=== PATIENT | male | born 1965 | race Hispanic/Latino ===

== ENCOUNTER 2016-10-09 19:26 | Emergency (ER) | payer MEDICAID ==
[~2016-10-09] VITALS: Ht 172.7 cm; Wt 93.0 kg
[~2016-10-09 19:26] MED LIST: AMOXICILLIN500 MG PO; BACTRIM DS1 TAB PO; CITALOPRAM20 MG PO; DIABETA5 MG PO; ERYTHROMYCIN E400 MG PO; FLEXERIL OR; LISINOPRIL10 MG PO; NO HOME MEDS; OMEPRAZOLE20 MG PO; PRAVASTATIN20 MG PO; PREVACID30 M2 PO; ULTRAM50 M1 PO
[2016-10-09] MEDS ORDERED: FOLIC ACID1 MG PO (20:59)
[2016-10-09] MEDS ORDERED: NOVOLIN 70/30 INNLT SC (20:59)
[2016-10-09 21:00] VITALS: BP 121/74
[2016-10-09] MEDS ORDERED: XELJANZ5 MG PO (21:00)
[2016-10-09] MEDS ORDERED: METFORMIN HCL1000 MG PO (21:01)
[2016-10-09] MEDS ORDERED: DULOXETINE HCL30 MG PO (21:01)
[2016-10-09] MEDS ORDERED: ADLT ASA LOW81 MG PO (21:02)
[2016-10-09] MEDS ORDERED: GABAPENTIN300 MG PO (21:02)
== END 2016-10-09 22:00 | disposition left against medical advice (07) | DRG 552 ==
LOC: ED 19:26 → LWOBS 20:50 → ED 20:50 → LWOBS 22:00
DX: M54.9 Dorsalgia, unspecified (principal)

== ENCOUNTER 2017-05-27 10:23 | Emergency (ER) | payer MEDICAID ==
[~2017-05-27] VITALS: Ht 172.7 cm; Wt 90.0 kg
[~2017-05-27 10:23] MED LIST changes: +ADLT ASA LOW81 MG PO; +DULOXETINE HCL30 MG PO; +FOLIC ACID1 MG PO; +GABAPENTIN300 MG PO; +METFORMIN HCL1000 MG PO; +NOVOLIN 70/30 INNLT SC; +XELJANZ5 MG PO
[2017-05-27 11:48] VITALS: BP 128/81
== END 2017-05-27 11:48 | disposition home or self-care (01) | DRG 552 ==
LOC: ED 10:23
DX: M54.6 Pain in thoracic spine (principal); E11.9 Type 2 diabetes mellitus without complications; I10 Essential (primary) hypertension; E78.5 Hyperlipidemia, unspecified

== ENCOUNTER 2018-05-17 20:10 | Emergency (ER) | payer SELFPAY ==
[~2018-05-17] VITALS: Ht 172.7 cm; Wt 95.0 kg
--- NOTE | 2018-05-17 21:14 | NUR ---
BREATHING TREATMENT GIVEN USING A MOUTH PEICE. BREATHING TECH. FOR GOOD DEPOSITION TO THE LUNGS.
[2018-05-17 21:18] LABS: INFLUENZA A NONE DETECTED (NONE DETECT); INFLUENZA B NONE DETECTED (NONE DETECT)
[2018-05-17] MEDS ORDERED: CEPHALEXIN500 M1 PO (21:21)
[2018-05-17] MEDS ORDERED: ROBITUSSIN AC10 ML PO (21:21)
[2018-05-17 21:29] VITALS: BP 173/82
== END 2018-05-17 21:29 | disposition home or self-care (01) | DRG 153 ==
LOC: ED 20:10
DX: J06.9 Acute upper respiratory infection, unspecified (principal); B34.9 Viral infection, unspecified; R05 Cough; R50.9 Fever, unspecified

== ENCOUNTER 2019-03-24 06:08 | Emergency (ER) | payer BC ==
[~2019-03-24] VITALS: Ht 172.7 cm; Wt 95.4 kg
[~2019-03-24 06:08] MED LIST changes: +CEPHALEXIN500 M1 PO; +ROBITUSSIN AC10 ML PO
[2019-03-24] MEDS ORDERED: FARXIGA5 MG PO (06:30)
[2019-03-24] MEDS ORDERED: ULTRAM50 MG PO (06:30)
[2019-03-24] MEDS ORDERED: LANTUS SOL100 UNIT/M SC (06:31)
[2019-03-24] MEDS ORDERED: ASPIRINCHW 81MG PO (06:31)
[2019-03-24] MEDS ORDERED: COLESEVELAM H3.75 GM PO (06:32)
[2019-03-24] MEDS ORDERED: NOVOLOG FL100 UNIT/M (06:32)
[2019-03-24 07:02] LABS: HEMATOCRIT 37.6 % (39.0-50.0); HEMOGLOBIN 12.7 g/dl (14.0-18.0); IMMATURE GRANULOCYTES 0.2 % (0.0-5.0); MEAN CELL VOLUME 85.5 fL CALC (80.0-100.0); MEAN CORPUSCULAR HGB 28.9 pG CALC (26.0-32.0); MEAN CORPUSCULAR HGB CONC 33.8 g/L CALC (32.0-36.0); NEUT# 3.43 thou/uL (1.82-7.42); RED BLOOD COUNT 4.4 mill/uL (4.70-6.10); RED CELL DISTRI WIDTH 12.3 % (11.5-15.5)
[2019-03-24 07:16] LABS: ALBUMIN 3.8 g/dL (3.2-5.0); ALKALINE PHOSPHATASE 124 u/l (38-126); BILIRUBIN, TOTAL 0.4 mg/dL (0.0-1.4); BUN 17 mg/dL (9-20); BUN/CREATININE RATIO 16 (12-20 (CALC)); CARBON DIOXIDE 24 mmol/l (22-30); CREATININE 1.1 mg/dL (0.7-1.3); GFR > 60 ML/MIN (>=60 (CALC)); GFR FOR AFR.AMER. > 60 ML/MIN (>=60 (CALC)); POTASSIUM 4.6 mmol/l (3.5-5.1); SODIUM 138 mmol/l (137-146)
[2019-03-24 07:19] LABS: ANION GAP 12 (6-22 (CALC)); CHLORIDE 107 mmol/l (95-108); SGOT/AST 37 u/l (17-59)
[2019-03-24 08:41] LABS: URINE BILIRUBIN - DIPSTICK NEGATIVE (NEGATIVE); URINE BLOOD DIPSTICK LARGE (NEGATIVE); URINE COLOR YELLOW; URINE GLUCOSE - DIPSTICK 250 mg/dL (NEGATIVE); URINE KETONE NEGATIVE (NEGATIVE); URINE LEUK ESTERASE NEGATIVE (NEGATIVE); URINE NITRITE - DIPSTICK NEGATIVE (Negative); URINE PH 5.5 (4.5-8.0); URINE PROTEIN - DIPSTICK 100 mg/dL (NEG-TRACE); URINE UROBILINOGEN - DIPSTICK 0.2 E.U./dL (0.2)
[2019-03-24 08:45] LABS: BARBITURATES NEGATIVE (NEGATIVE); COCAINE NEGATIVE (NEGATIVE); METHADONE NEGATIVE (NEGATIVE); OXCYCODONE NEGATIVE (NEGATIVE); TETRAHYDROCANNABIONOL NEGATIVE (NEGATIVE); TRICYLIC ANTIDEPRESSANTS NEGATIVE (NEGATIVE)
[2019-03-24 08:54] LABS: URINE WBC 0-2 WBC/hpf (0-5)
[2019-03-24 09:00] VITALS: BP 148/91
== END 2019-03-24 09:13 | disposition home or self-care (01) | DRG 103 ==
LOC: ED 06:08
PROVIDERS: Emergency Medicine
DX: R51 Headache (principal); B34.9 Viral infection, unspecified; E11.9 Type 2 diabetes mellitus without complications; I10 Essential (primary) hypertension; Z79.4 Long term (current) use of insulin

== ENCOUNTER 2020-04-22 15:49 | Emergency (ER) | payer BC ==
[~2020-04-22] VITALS: Ht 172.7 cm; Wt 99.1 kg
[~2020-04-22 15:49] MED LIST changes: +ASPIRINCHW 81MG PO; +COLESEVELAM H3.75 GM PO; +FARXIGA5 MG PO; +LANTUS SOL100 UNIT/M SC; +NOVOLOG FL100 UNIT/M; +ULTRAM50 MG PO
[2020-04-22] MEDS ORDERED: PERCOCET 5/321 COMBO PO (16:14)
[2020-04-22] MEDS ORDERED: GABAPENTIN100 MG PO (16:16)
[2020-04-22] MEDS ORDERED: CYMBALTA60 MG PO (16:17)
[2020-04-22] MEDS ORDERED: XELJANZ10 MG PO (16:30)
[2020-04-22] MEDS ORDERED: ATORVASTATIN CA40 MG PO (16:30)
[2020-04-22] MEDS ORDERED: NEURONTIN300 MG PO (16:33)
[2020-04-22 17:15] VITALS: BP 129/78
== END 2020-04-22 17:15 | disposition home or self-care (01) | DRG 93 ==
LOC: ED 15:49
DX: G89.29 Other chronic pain (principal); M54.6 Pain in thoracic spine; M54.5 Low back pain; E11.9 Type 2 diabetes mellitus without complications; I10 Essential (primary) hypertension; K21.9 Gastro-esophageal reflux disease without esophagitis; Z79.84 Long term (current) use of oral hypoglycemic drugs

== ENCOUNTER 2021-02-28 16:42 | Emergency (ER) | payer BC ==
[~2021-02-28] VITALS: Ht 172.7 cm; Wt 90.9 kg
[~2021-02-28 16:42] MED LIST changes: +ATORVASTATIN CA40 MG PO; +CYMBALTA60 MG PO; +GABAPENTIN100 MG PO; +NEURONTIN300 MG PO; +PERCOCET 5/321 COMBO PO; +XELJANZ10 MG PO
[2021-02-28 19:25] VITALS: BP 123/74
== END 2021-02-28 19:25 | disposition home or self-care (01) | DRG 552 ==
LOC: ED 16:42
DX: M54.5 Low back pain (principal); G89.29 Other chronic pain; I10 Essential (primary) hypertension; E11.9 Type 2 diabetes mellitus without complications; K21.9 Gastro-esophageal reflux disease without esophagitis; M19.90 Unspecified osteoarthritis, unspecified site; Z79.84 Long term (current) use of oral hypoglycemic drugs

== ENCOUNTER 2021-03-04 05:12 | Emergency (ER) | payer BC | END 2021-03-04 07:00 | disposition left against medical advice (07) | DRG 951 | LOC: ED 05:12 → LWOBS 06:59 | DX: Z53.21 Procedure and treatment not carried out due to patient leaving prior to being seen by health care provider (principal) ==

== ENCOUNTER 2024-07-05 10:52 | Emergency (ER) | payer BC ==
[~2024-07-05] VITALS: Ht 172.7 cm; Wt 88.4 kg
[2024-07-05 15:02] VITALS: BP 111/65
== END 2024-07-05 15:04 | disposition left against medical advice (07) | DRG 951 ==
LOC: ED 10:52 → LWOBS 13:56
DX: Z53.21 Procedure and treatment not carried out due to patient leaving prior to being seen by health care provider (principal); R09.89 Other specified symptoms and signs involving the circulatory and respiratory systems